=== PATIENT | female | born 1985 | race Caucasian/White ===

== ENCOUNTER 2018-06-23 11:42 | Outpatient (CLI) | payer SELFPAY ==
--- NOTE | 2018-06-23 11:59 | DI.RAD_ITS ---
SYMPTOM/DIAGNOSIS: PNEUMONIA, J18.9, COUGH, R05 PA AND LATERAL CHEST: No priors. The heart is normal in size. The lungs are clear. The mediastinal structures and pleura appear intact. CONCLUSION: Normal chest.
== END 2018-06-23 12:02 ==
PROVIDERS: PCP Physician Assistant Medical; Visit Provider Physician Assistant Medical
DX: J18.9 Pneumonia, unspecified organism (principal); R05 Cough
CPT/HCPCS: 71046

== ENCOUNTER 2018-06-23 12:03 | Outpatient (CLI) | payer SELFPAY ==
[2018-06-23 12:36] LABS: Abs Immature Grans 0.02 k/cumm (0.0-0.09); Absolute Basophil Count 0.02 k/cumm (0.0-0.2); Absolute Eosinophil Count 0.09 k/cumm (0.0-0.7); Absolute Lymphocyte Count 2.88 k/cumm (1.2-3.4); Absolute Monocyte Count 0.65 k/cumm (0.11-0.7); Basophils % 0.3; Eosinophils % 1.2; HCT 39.3 % (36.0-46.0); HGB 13.3 g/dL (12.0-15.5); Immature Grans % 0.3; Lymphocytes % 37.1; Mean Corp. HGB Concentration 33.8 g/dL (32.0-36.0); Mean Corpuscular Hemoglobin 27.9 pg (27.0-33.0); Mean Corpuscular Volume 82.6 fL (80-95); Mean Platelet Volume 10.6 fL (8.0-11.0); Monocytes % 8.4; Neutrophils % 52.7; Platelet Count 312 x1000/uL (130-400); RBC 4.76 m/cumm (4.00-5.20); RBC Distribution Width 13.6 % (11.7-14.6); White Blood Cell Count 7.76 k/cumm (4.4-10.8)
[2018-06-23 13:24] LABS: ALT 26 U/L (12-78); AST 14 U/L (15-37); Albumin 3.5 g/dL (3.4-5.0); Alkaline Phosphatase 70 U/L (46-116); Anion Gap 10.1 mmol/L (3-11); BUN 7 mg/dL (7-18); Bilirubin, Total 0.2 mg/dL (0.2-1.0); CO2 27.9 mmol/L (21.0-32.0); CREATININE 0.95 mg/dL (0.55-1.02); Calcium 8.7 mg/dL (8.5-10.1); Chloride 103 mmol/L (98-107); Glucose 99 mg/dL (70-100); Potassium 4.2 mmol/L (3.5-5.1); Sodium 141 mmol/L (136-145)
== END 2018-06-23 12:23 ==
PROVIDERS: PCP Physician Assistant Medical; Visit Provider Specialist/Technologist Athletic Trainer
DX: J18.9 Pneumonia, unspecified organism (principal)
CPT/HCPCS: 36415; 80053; 85025

== ENCOUNTER 2019-01-17 14:17 | Outpatient (REF) | payer OTHER, SELFPAY ==
[2019-01-17 21:13] LABS: Bacteria Rare HPF (Negative); C & S Indicated? C&S Done As Ordered; Casts Negative LPF (Negative); Crystals Negative HPF (Negative); Epithelial Cells Negative HPF (Negative); Mucus Negative (Negative); Other Cells Negative (Negative)
== END 2019-01-17 14:37 ==
LOC: NCHCN 14:17
PROVIDERS: PCP Physician Assistant Medical; Visit Provider Nurse Practitioner Family
DX: R30.0 Dysuria (principal)
CPT/HCPCS: 87077; 81015; 87086; 87186

== ENCOUNTER 2019-05-02 13:05 | Outpatient (REF) | payer OTHER, SELFPAY ==
[2019-05-02 20:42] LABS: ALT 27 U/L (12-78); AST 15 U/L (15-37); Albumin 3.7 g/dL (3.4-5.0); Alkaline Phosphatase 56 U/L (46-116); Anion Gap 10.9 mmol/L (3-11); BUN 7 mg/dL (7-18); Bilirubin, Total 0.3 mg/dL (0.2-1.0); CO2 26.1 mmol/L (21.0-32.0); CREATININE 0.83 mg/dL (0.55-1.02); Calculated LDL 187 mg/dL; Chloride 103 mmol/L (98-107); Cholesterol 286 mg/dL (50-200); Glucose 95 mg/dL (70-100); HDL Cholesterol 67 mg/dL (40-60); Potassium 4.9 mmol/L (3.5-5.1); Sodium 140 mmol/L (136-145); Total Protein 7.2 g/dL (6.4-8.2); Triglyceride 164 mg/dL (30-150)
[2019-05-02 21:20] LABS: Hemoglobin A1C 4.9 % (4.5-6.2)
== END 2019-05-02 13:25 ==
LOC: NCHCN 13:05
PROVIDERS: PCP Physician Assistant Medical; Visit Provider Physician Assistant Medical
DX: E28.2 Polycystic ovarian syndrome (principal)
CPT/HCPCS: 80053; 80061; 83721; 83036

== ENCOUNTER 2019-05-31 01:26 | Outpatient (CLI) | payer OTHER, SELFPAY ==
--- NOTE | 2019-05-31 09:00 | NS.NUTBLAN_ITS ---
DESCRIPTION: Harriet Arias presents for nutrition consult for hyperlipidemia although also reports polycystic ovary syndrome, anemia and constipation as chronic nutrition related problems. Total cholesterol: 286 LDL 187 HDL 69 A1c 4.9 Harriet reports high stress, high cholesterol, stress, lack of physical activity as risk factors for heart disease. She describes intense pain from ovaries; treated with Metformin. She states she has gained 8 pounds over the past month. She reports getting sick after eating peppers, apples, bananas, mangos, onions. She dislikes tomato juice, milk and beans/legumes. She drinks Monster drink every morning and water the rest of the day. She has a snack of chips/crackers 4 hours after getting up. Has salad if she is at work; she does not eat if she is home because she does not feel there is enough food for her; if she eats it is macaroni or rice. She cooks dinner for her family of fried chicken with mashed potato, cheese steak, shepherds pie, as examples. Eats out once a week [employer] or [facility] dinner. She has started increasing frequency of nuts. She reports a good night sleep 1-3 times a week stating she is a light sleeper and ferrets wake her up. She describes high stress with 3 teenagers and many animals. She is a tobacco user. ASSESSMENT/INTERVENTION: Multiple conditions to address in her food plans. Harriet reports eating minimally with food restriction but denies hunger. Harriet does not appear to present with typical PCOS symptoms of obesity and insulin resistance and thus typical intervention may not be needed, although we did review carbohydrate sources as a possible prevention for weight gain. Reviewed foods compatible with decreasing cholesterol; constipation prevention focused on fiber and saturated fats. Harriet does not express confidence she can change her food choices given her limited resources and lack of interest in eating. PLAN: 100% whole grain; beans as possible; 2+ cups fruit and 2+ cups vegetables daily Less saturated fat in cheeses; more polyunsaturated fat in oils
== END 2019-05-31 01:46 ==
PROVIDERS: PCP Physician Assistant Medical; Visit Provider Dietitian, Registered
DX: E78.5 Hyperlipidemia, unspecified (principal); Z71.3 Dietary counseling and surveillance
CPT/HCPCS: 97802

== ENCOUNTER 2021-12-29 08:22 | Outpatient (REF) | payer OTHER, SELFPAY ==
[2021-12-29 13:59] LABS: Abs Immature Grans 0.01 10^3/uL (0.0-0.06); Absolute Basophil Count 0.04 10^3/uL (0.0-0.2); Absolute Eosinophil Count 0.08 10^3/uL (0.0-0.7); Absolute Lymphocyte Count 2.39 10^3/uL (1.2-3.4); Absolute Monocyte Count 0.68 10^3/uL (0.1-0.8); Absolute Neutrophil Count 3.43 10^3/uL (1.2-6.7); Basophils % 0.6; Eosinophils % 1.2; HCT 36.6 % (36.0-46.0); HGB 11.3 g/dL (11.2-15.7); Immature Grans % 0.2; MCH 23.3 pg (27.0-33.0); MCHC 30.9 % (32.0-36.0); MCV 75.6 fL (80-95); MPV 11.1 fL (8.0-11.0); Monocytes % 10.3; Neutrophils % 51.7; Nucleated RBC 0 %; Platelet Count 363 10^3/uL (130-400); RBC 4.84 10^6/uL (3.93-5.22); RDW 15.1 % (11.7-14.6); RDW-SD 41.2 fL; WBC 6.63 10^3/uL (4.4-10.8)
[2021-12-29 14:24] LABS: Anion Gap 11.5 mmol/L (3-11); BUN 7 mg/dL (7-18); CO2 26.5 mmol/L (21.0-32.0); CREATININE 0.9 mg/dL (0.55-1.02); Calcium 9.3 mg/dL (8.5-10.1); Calculated LDL 116 mg/dL (<100); Chloride 104 mmol/L (98-107); Cholesterol 200 mg/dL (<200); Glucose 68 mg/dL (74-106); HDL Cholesterol 70 mg/dL (40-60); Potassium 3.8 mmol/L (3.5-5.1); Sodium 142 mmol/L (136-145); TSH (W/Ref FT4) 1.87 uIU/mL (0.36-3.74); Triglyceride 70 mg/dL (<150)
== END 2021-12-29 08:23 | disposition home or self-care (01) ==
LOC: NCHCN 08:22
PROVIDERS: PCP Physician Assistant Medical; Visit Provider Physician Assistant Medical
DX: E28.2 Polycystic ovarian syndrome (principal); D64.9 Anemia, unspecified; E78.5 Hyperlipidemia, unspecified
CPT/HCPCS: 80048; 80061; 84443; 85025

== ENCOUNTER 2022-01-04 12:50 | Outpatient (REF) | payer OTHER, SELFPAY ==
[2022-01-05 15:25] LABS: COVID-19 RT-PCR UVMMC Result Positive (Negative)
== END 2022-01-04 12:51 | disposition home or self-care (01) ==
LOC: LBN 12:50
PROVIDERS: PCP Physician Assistant Medical; Visit Provider Nurse Practitioner Family
DX: Z20.822 Contact with and (suspected) exposure to COVID-19 (principal)
CPT/HCPCS: U0003

== ENCOUNTER 2022-11-08 17:05 | Outpatient (REF) | payer OTHER, SELFPAY ==
[2022-11-08 18:53] LABS: HCT 32.9 % (36.0-46.0); HGB 10.2 g/dL (11.2-15.7); MCH 22.4 pg (27.0-33.0); MCV 72 fL (80-95); MPV 10.4 fL (8.0-11.0); Platelet Count 393 10^3/uL (130-400); RBC 4.56 10^6/uL (3.93-5.22); RDW-SD 41.6 fL; WBC 9.42 10^3/uL (4.4-10.8)
[2022-11-08 19:10] LABS: Anion Gap 8.8 mmol/L (3-11); BUN 7 mg/dL (7-18); CO2 26.2 mmol/L (21.0-32.0); CREATININE 0.9 mg/dL (0.55-1.02); Calcium 8.9 mg/dL (8.5-10.1); Chloride 106 mmol/L (98-107); Estimated GFR 84.44 (mL/min/1.73m2); Glucose 90 mg/dL (74-106); Sodium 141 mmol/L (136-145); TSH (W/Ref FT4) 1.45 uIU/mL (0.36-3.74)
[2022-11-08 19:17] LABS: Hemoglobin A1C 5.3 % (<5.7)
== END 2022-11-08 17:06 | disposition home or self-care (01) ==
LOC: NCHCN 17:05
PROVIDERS: PCP Physician Assistant Medical; Visit Provider Physician Assistant Medical
DX: R00.2 Palpitations (principal); Z13.1 Encounter for screening for diabetes mellitus
CPT/HCPCS: 80048; 85027; 83036; 84443

== ENCOUNTER 2022-11-15 10:28 | Outpatient (CLI) | payer OTHER, SELFPAY | END 2022-11-15 10:29 | disposition home or self-care (01) | PROVIDERS: PCP Physician Assistant Medical; Visit Provider Physician Assistant Medical | DX: R00.2 Palpitations (principal) | CPT/HCPCS: 93246 ==

== ENCOUNTER 2022-11-15 15:09 | Outpatient (REF) | payer OTHER, SELFPAY ==
[2022-11-15 16:30] LABS: Iron 12 ug/dL (50-170); Total Iron Binding Capacity 485 ug/dL (250-450); Transferrin Sat 2 % (15-50)
[2022-11-15 16:57] LABS: Ferritin 5 ng/mL (8-252); Vitamin B12 397 pg/mL (193-986)
== END 2022-11-15 15:10 | disposition home or self-care (01) ==
LOC: NCHCN 15:09
PROVIDERS: PCP Physician Assistant Medical; Visit Provider Physician Assistant Medical
DX: D64.9 Anemia, unspecified (principal); R79.89 Other specified abnormal findings of blood chemistry
CPT/HCPCS: 82607; 82728; 83540; 83550

== ENCOUNTER 2022-12-06 08:07 | Outpatient (CLI) | payer OTHER, SELFPAY ==
--- NOTE | 2022-12-06 12:25 | W.CARDEVENT ---
Date of service: 12/06/22 Time of Service: 12:25 Cardiac Event Recorder Referring Provider:: Abraham Salinas Indications:: Palpitations Cardiac Event Note: This is a 14-day cardiac event monitor ordered for palpitations Rhythm throughout was sinus with an average heart rate of 88. Minimum was 51, maximum 179 There were rare atrial and ventricular ectopic beats A total of 2 self-limited atrial runs occurred. The longest of these was 7 beats in duration There was no atrial fibrillation, no high-grade AV block, no pauses greater than 3 seconds Patient symptoms were reported which had no correlation with any dysrhythmia
== END 2022-12-06 08:08 | disposition home or self-care (01) ==
LOC: CARDOPNVT 08:07
PROVIDERS: PCP Physician Assistant Medical; Visit Provider Internal Medicine Cardiovascular Disease
DX: R00.2 Palpitations (principal)

== ENCOUNTER 2022-12-21 15:05 | Outpatient (REF) | payer OTHER, SELFPAY ==
[2022-12-21 17:04] LABS: HCT 43.9 % (36.0-46.0); HGB 14.3 g/dL (11.2-15.7); MCH 25.9 pg (27.0-33.0); MCHC 32.6 % (32.0-36.0); MCV 79 fL (80-95); MPV 11.2 fL (8.0-11.0); Platelet Count 322 10^3/uL (130-400); RBC 5.53 10^6/uL (3.93-5.22); RDW 22.9 % (11.7-14.6); RDW-SD 62.3 fL; WBC 7.69 10^3/uL (4.4-10.8)
[2022-12-21 17:52] LABS: Ferritin 29 ng/mL (8-252)
[2022-12-21 18:00] LABS: Iron 183 ug/dL (50-170); Total Iron Binding Capacity 426 ug/dL (250-450); Transferrin Sat 43 % (15-50)
== END 2022-12-21 15:06 | disposition home or self-care (01) ==
LOC: NCHCN 15:05
PROVIDERS: PCP Physician Assistant Medical; Visit Provider Physician Assistant Medical
DX: D64.9 Anemia, unspecified (principal)
CPT/HCPCS: 85027; 82728; 83540; 83550

== ENCOUNTER 2023-01-24 09:07 | Outpatient (CLI) | payer OTHER, SELFPAY | END 2023-01-24 09:08 | disposition home or self-care (01) | LOC: CARDOPNVT 09:07 | PROVIDERS: PCP Physician Assistant Medical; Visit Provider Physician Assistant Medical | DX: R00.2 Palpitations (principal) | CPT/HCPCS: 93270 ==

== ENCOUNTER 2023-03-07 10:32 | Outpatient (CLI) | payer OTHER, SELFPAY ==
--- NOTE | 2023-03-07 10:34 | W.CARDEVENT ---
Date of service: 03/07/23 Time of Service: 10:34 Cardiac Event Recorder Referring Provider:: Abraham Salinas Indications:: Palpitations Cardiac Event Note: This is a cardiac event monitor ordered for palpitations. The patient was monitored for 29 days Rhythm throughout was sinus. Average heart rate was 90. Minimum heart rate was 58. Maximum heart rate was 162 There were rare ventricular ectopic beats. There was no SVT, no atrial fibrillation, no high-grade AV block, no pauses greater than 3 seconds Patient's symptoms were reported. The majority of these corresponded to sinus rhythm, rarely to isolated PVCs
== END 2023-03-07 10:33 | disposition home or self-care (01) ==
LOC: CARDOPNVT 10:32
PROVIDERS: PCP Physician Assistant Medical; Visit Provider Internal Medicine Cardiovascular Disease
DX: R00.2 Palpitations (principal)

== ENCOUNTER 2024-03-19 16:12 | Outpatient (REF) | payer OTHER, SELFPAY ==
[2024-03-19 16:35] LABS: Abs Immature Grans 0.03 10^3/uL (0.0-0.06); Absolute Basophil Count 0.04 10^3/uL (0.0-0.2); Absolute Lymphocyte Count 1.83 10^3/uL (1.2-3.4); Absolute Monocyte Count 0.94 10^3/uL (0.1-0.8); Absolute Neutrophil Count 4.76 10^3/uL (1.2-6.7); Basophils % 0.5 %; Eosinophils % 1.3 %; HCT 40.1 % (36.0-46.0); HGB 13.1 g/dL (11.2-15.7); Immature Grans % 0.4 %; Lymphocytes % 23.8 %; MCH 27.5 pg (27.0-33.0); MCHC 32.7 % (32.0-36.0); MCV 84 fL (80-95); MPV 10.9 fL (8.0-11.0); Monocytes % 12.2 %; Neutrophils % 61.8 %; Platelet Count 331 10^3/uL (130-400); RBC 4.77 10^6/uL (3.93-5.22); RDW-SD 39.7 fL
[2024-03-19 17:11] LABS: ALT 23 U/L (14-59); AST 18 U/L (15-37); Alkaline Phosphatase 48 U/L (46-116); Anion Gap 9.7 mmol/L (3-11); BUN 6 mg/dL (7-18); Bilirubin, Total 0.41 mg/dL (0.2-1.0); CO2 26.3 mmol/L (21.0-32.0); Calcium 9.5 mg/dL (8.5-10.1); Chloride 105 mmol/L (98-107); Estimated GFR 73.49 (mL/min/1.73m2); Glucose 85 mg/dL (74-106); Magnesium 1.6 mg/dL (1.8-2.4); Potassium 3.7 mmol/L (3.5-5.1); Sodium 141 mmol/L (136-145); Total Protein 7.5 g/dL (6.4-8.2)
[2024-03-19 17:37] LABS: Hemoglobin A1C 5.4 % (<5.7)
== END 2024-03-19 16:13 | disposition home or self-care (01) ==
LOC: NCHCN 16:12
PROVIDERS: PCP Physician Assistant Medical; Visit Provider Physician Assistant Medical
DX: K21.9 Gastro-esophageal reflux disease without esophagitis (principal); E28.2 Polycystic ovarian syndrome; E83.42 Hypomagnesemia; Z13.1 Encounter for screening for diabetes mellitus
CPT/HCPCS: 80053; 83036; 83735; 85025

== ENCOUNTER 2024-08-28 08:41 | Outpatient (REF) | payer OTHER, SELFPAY ==
[2024-08-28 14:59] LABS: HCT 35.8 % (36.0-46.0); HGB 11.4 g/dL (11.2-15.7); MCH 25.2 pg (27.0-33.0); MCHC 31.8 % (32.0-36.0); MCV 79 fL (80-95); MPV 10.6 fL (8.0-11.0); Platelet Count 396 10^3/uL (130-400); RBC 4.53 10^6/uL (3.93-5.22); RDW 14.1 % (11.7-14.6); RDW-SD 40.2 fL
[2024-08-28 15:55] LABS: Calculated LDL 120 mg/dL (<100); Cholesterol 213 mg/dL (<200); Ferritin 6 ng/mL (8-252); HDL Cholesterol 69 mg/dL (40-60); Magnesium 1.7 mg/dL (1.8-2.4); Triglyceride 122 mg/dL (<150); Vitamin D 25 Total 14.7 ng/mL (30-100)
== END 2024-08-28 08:42 | disposition home or self-care (01) ==
LOC: NCHCN 08:41
PROVIDERS: PCP Physician Assistant Medical; Visit Provider Physician Assistant Medical
DX: E83.42 Hypomagnesemia (principal); E28.2 Polycystic ovarian syndrome; D64.9 Anemia, unspecified; F41.8 Other specified anxiety disorders
CPT/HCPCS: 80061; 82306; 85027; 82728; 83735

== ENCOUNTER 2024-10-09 06:10 | Day surgery (SDC) | payer OTHER, SELFPAY ==
--- NOTE | 2024-10-08 17:44 | W.ANESPRE ---
General Info Date of Service Date Performed: 10/09/24 Height: 5 ft 2.25 in Weight: 74.843 kg Body Mass Index (BMI): 29.9 Surgical Procedure: Operation Date: 10/09/24 07:40 Proposed Procedure Side Surgeon p Wrist ECTR Right Miguel Angel Hamlin MD Meds Allergies and Home Medications Allergies Allergy/AdvReac Type Severity Reaction Status Date / Time carbamazepine (From Tegretol) Allergy Unknown Unknown Unverified 10/09/24 06:27 codeine Allergy Other (See Unverified 10/09/24 06:27 Comment) Penicillins Allergy Other (See Unverified 10/09/24 06:27 Comment) hydrocodone (From Vicodin) AdvReac Severe Nausea Unverified 10/09/24 06:27 Home Medication ?Medication ?Instructions ?Recorded metformin 500 mg tablet 500 mg PO DAILY 02/06/15 norethindrone 1 mg-ethinyl 1 tab PO DAILY 02/06/15 estradiol 35 mcg tablet (Nortrel) spironolactone 100 mg tablet 100 mg PO DAILY 02/06/15 bupropion HCl 100 mg tablet 100 mg PO DAILY 04/12/24 (Wellbutrin) buspirone 5 mg tablet 5 mg PO BID 04/12/24 esomeprazole magnesium 40 mg 40 mg PO DAILY 04/12/24 capsule,delayed release gabapentin 300 mg capsule 300 mg PO QHS 04/12/24 acetaminophen 500 mg tablet 500 mg PO Q6H PRN pain #60 tabs 10/09/24 Current Visit Medications: Current Medications Generic Name Dose Route Start Last Admin Trade Name Freq PRN Reason Stop Dose Admin Acetaminophen 1,000 mg 10/09/24 06:00 Acetaminophen 500 Mg Tab PO 10/09/24 23:59 PREOP ASHWINI Celecoxib 400 mg 10/09/24 06:00 Celecoxib 200 Mg Cap PO 10/09/24 23:59 PREOP ASHWINI Ringer's Solution 1,000 mls @ 0 mls/hr 10/09/24 06:00 IV 10/09/24 23:59 INFUSION ASHWINI Cefazolin Sodium/Dextrose 2 gm in 50 mls @ 100 mls/hr 10/09/24 06:00 Ancef Duplex IVPB 10/09/24 23:59 PREOP ASHWINI IV Miscellaneous Supplies 1 each 10/09/24 06:00 Iv Access IV 10/09/24 23:59 DIRECTED ASHWINI Sodium Chloride 0 ml 10/09/24 06:00 Normal Saline Flush 10 Ml Syr IV 10/09/24 23:59 PRN PRN Sodium Chloride 0 ml 10/09/24 06:00 Normal Saline 10 Ml Vial IJ 10/09/24 23:59 DIRECTED PRN Sterile Water 0 ml 10/09/24 06:00 Water,Injection,Sterile 10 Ml Vial IJ 10/09/24 23:59 DIRECTED PRN PFSH Active Problems Active Problems: Problem Status Onset Code Right lateral epicondylitis Acute M77.11 Right carpal tunnel syndrome Acute G56.01 Medical History Medical History Polycystic ovarian syndrome Dysuria Palpitations Headache Microscopic hematuria Functional disorder of intestine GERD (gastroesophageal reflux disease) Allergic rhinitis Anxiety disorder Major psychotic depression, single episode Hyperlipidemia Anemia, unspecified Polycystic ovaries Tobacco dependence Bowel wall thickening Surgical History Surgical History Hx of section Hx of laparoscopy EGD, MAC, Dr Dawna Hines, repeat PRN (05/03/16) Colonoscopy - MAC (05/03/16) Dr Dawna Hines Tobacco Smoking/Tobacco Use Status: Current every day Smokeless tobacco user: other Substance Use Substance use: Never Vital Signs and Lab Results Vital Signs Most Recent Vital Signs in EMR: Temp Pulse Resp BP Pulse Ox 36.4 C L 87 18 109/74 98 10/09/24 06:34 10/09/24 06:34 10/09/24 06:34 10/09/24 06:34 10/09/24 06:34 Lab Results Blood Type / Crossmatch: No Data to Display Complete Blood Count: No Data to Display Complete Metabolic Panel: No Data to Display Liver Function Panel: No Data to Display Coagulation Panel: No Data to Display Cardiac Panel: No Data to Display Arterial Blood Gas: No Data to Display Venous Blood Gas: No Data to Display Pancreas Panel: No Data to Display Thyroid Panel: No Data to Display Infectious Disease: No Data to Display Blood Cultures: No Data to Display Toxicology Panel: No Data to Display Panel: No Data to Display Anesthesia Assessment and Plan Anesthesia History Personal History: No History of Anesthesia Complications Family History: No Family History of Anesthesia Complications Exercise Tolerance Exercise Tolerance: Metabolic Equivalents>4 Cardiac & Pulmonary Exam Cardiac Exam: Normal S1/S2 Heart Sounds Pulmonary Exam: Clear Bilateral Breath Sounds Implantable Cardiac Device Does patient have a Pacemaker or an ICD?: No Airway Exam Known Difficult Airway: No Mallampati Class: 4 Mouth Opening: Narrow (< 3cm) (TMJ) Thyromental Distance: Greater than 3 cm Neck Range of Motion: Full ROM Neck Circumference: Normal Teeth Condition: Normal Dentition ASA Classification ASA Score: ASA 2 Emergency Case?: No NPO Status NPO Status: NPO Clears >2 hours, Solids >8 hours Status Status: Negative HCG Anesthesia Plan Resuscitation Status: Full Code Anesthesia Technique: General Anesthesia Airway Planned: Natural Airway Monitors Used: Standard Monitors Preoperative Comments:: 38 yo female for ectr. Sig PMHx: palpitations (has a propranolol PRN rx, does not use very often), GERD(Nexium, well controlled), anxiety/depression, smoker Previous Anes: - tonsils, adam 2, grade 1, easy mask. - EGD/colo, prop, natural airway, no issues.
[2024-10-09 06:34] VITALS: BP 109/74; PULSE 87; RESP 18; TEMP 36.4; O2SAT 98
[2024-10-09] MEDS: Acetaminophen 500 MG TAB 1000 MG PO (06:38)
[2024-10-09] MEDS: Celecoxib 200 MG CAP 400 MG PO (06:38)
[2024-10-09] MEDS: Lactated Ringers 1,000 ML 80 ML IV (07:12)
--- NOTE | 2024-10-09 07:13 | W.PM.DSUDISC ---
Date of service: 10/09/24 Discharge Plan Disposition Patient Disposition: Home Condition: Good Discharge Details Reason For Visit: Right carpal tunnel syndrome Attending Provider: Miguel Angel Hamlin Primary Care Provider: Abraham Salinas Home Meds and New Rx's Prescriptions: New acetaminophen 500 mg tablet 500 mg PO Q6H PRN (Reason: pain) Qty: 60 2RF Continued bupropion HCl [Wellbutrin] 100 mg tablet 100 mg PO DAILY buspirone 5 mg tablet 5 mg PO BID esomeprazole magnesium 40 mg capsule,delayed release(DR/EC) 40 mg PO DAILY gabapentin 300 mg capsule 300 mg PO QHS metformin 500 MG tablet 500 mg PO DAILY spironolactone 100 MG tablet 100 mg PO DAILY Nortrel () 1 EACH tablet 1 tab PO DAILY Discharge Instructions Stand Alone Forms: [facility]bacar Lebron Tunnel Release Referrals: Miguel Angel Hamlin MD [ [facility] STAFF PHYSICIAN] - Remove Dressings/Wound Care:: 48 hours Shower/Bathe:: 48 hours Diet:: As Tolerated Discharge Orders Discharge Orders: Discharge Order (Routine); Ordered 10/09/24 Ordered By: Nydia Puente
[2024-10-09 07:18] VITALS: BMI 29.9
--- NOTE | 2024-10-09 07:19 | W.PREOPHP ---
Assessment and Plan Assessment and plan (1) Right carpal tunnel syndrome: Status: Acute Assessment and plan: Harriet is a 38-year-old female who has carpal tunnel syndrome of the right side in addition to potential other pathology such as lateral epicondylitis. She is here today for carpal tunnel release on the right side. She denies any new symptoms or new medical concerns. Once again, I reviewed the technical details of carpal tunnel release and that I perform an endoscopic release, but would make a larger, open, incision if necessary for visualization. I discussed the risks of the procedure to include, but not limited to, bleeding, infection, palmar pain, stiffness, damage to nerves, damage to vessels, damage to tendons, weakness, recurrence, and incomplete release. Given these risks, Harriet desires to proceed. History of Present Illness History of Present Illness Chief Complaint: Right Carpal Tunnel Syndrome Narrative: Harriet is a 38-year-old female has carpal tunnel syndrome about the right side. She has failed nonoperative options and is here today for carpal tunnel release. Please see the previous office note for complete detailed history. She has had some ongoing symptoms of lateral condyle lightest and other pains about the elbow, potentially derived from work, however, the primary symptomatology seem to be related to the carpal tunnel. She denies any ongoing medical issues such as chest pain or shortness of breath. Review of Systems All systems reviewed & are unremarkable except as noted in HPI and below PFSH All Active Problems Right lateral epicondylitis (Acute) Right carpal tunnel syndrome (Acute) Medical History Polycystic ovarian syndrome Dysuria Palpitations Headache Microscopic hematuria Functional disorder of intestine GERD (gastroesophageal reflux disease) Allergic rhinitis Anxiety disorder Major psychotic depression, single episode Hyperlipidemia Anemia, unspecified Polycystic ovaries Tobacco dependence Bowel wall thickening Surgical History Hx of section Hx of laparoscopy EGD, MAC, Dr Dawna Hines, repeat PRN (05/03/16) Colonoscopy - MAC (05/03/16) Dr Dawna Hines Social History Smoking/Tobacco Use Status: Current every day Tobacco Type: e-cigarettes Smokeless tobacco user: other Smoking risk assessment performed?: Yes Alcohol Intake: current Alcohol Intake frequency: a few times a week Alcohol type: beer Drug use: Never Substance use type: does not use Housing: house Do you feel safe at home: Yes Meds Allergies and Home Medications Allergies Allergy/AdvReac Type Severity Reaction Status Date / Time carbamazepine (From Tegretol) Allergy Unknown Unknown Unverified 10/09/24 06:27 codeine Allergy Other (See Unverified 10/09/24 06:27 Comment) Penicillins Allergy Other (See Unverified 10/09/24 06:27 Comment) hydrocodone (From Vicodin) AdvReac Severe Nausea Unverified 10/09/24 06:27 Home Medications ?Medication ?Instructions ?Recorded ?Confirmed ?Type metformin 500 mg tablet 500 mg PO DAILY 02/06/15 10/09/24 History norethindrone 1 mg-ethinyl 1 tab PO DAILY 02/06/15 10/09/24 History estradiol 35 mcg tablet (Nortrel) spironolactone 100 mg tablet 100 mg PO DAILY 02/06/15 10/09/24 History bupropion HCl 100 mg tablet 100 mg PO DAILY 04/12/24 10/09/24 History (Wellbutrin) buspirone 5 mg tablet 5 mg PO BID 04/12/24 10/09/24 History esomeprazole magnesium 40 mg 40 mg PO DAILY 04/12/24 10/09/24 History capsule,delayed release gabapentin 300 mg capsule 300 mg PO QHS 04/12/24 10/09/24 History acetaminophen 500 mg tablet 500 mg PO Q6H PRN pain #60 tabs 10/09/24 Rx Exam Const General: cooperative, healthy appearing, comfortable and no acute distress Resp Effort & Inspection: normal respiratory effort Auscultation: clear to auscultation bilaterally Cardio Rate: regular rate Rhythm: regular rhythm Results Last Vital Signs Temp 36.4 C L 10/09/24 06:34 Pulse 87 10/09/24 06:34 Resp 18 10/09/24 06:34 BP 109/74 10/09/24 06:34 Pulse Ox 98 10/09/24 06:34
[2024-10-09] MEDS: ceFAZolin 2 GM/50 ML BAG IVPB (07:22)
[2024-10-09] MEDS: Lidocaine 1% Pres-Free W/EPI 1/200,000 10 ML VIAL (07:37)
[2024-10-09 07:41] VITALS: BP 127/74; PULSE 74; RESP 18; TEMP 36; O2SAT 97
--- NOTE | 2024-10-09 07:49 | W.PM.OP ---
Operative Note Operative Note PRE-OP DIAGNOSIS: Right Carpal Tunnel Syndrome POST-OP DIAGNOSIS: same PROCEDURE: Right Endoscopic Carpal Tunnel Release SURGEON: Miguel Angel Hamlin ANESTHESIA TYPE: General:No Airway Refer to Anesthesia Record ESTIMATED BLOOD LOSS: 0 PATHOLOGY: none sent TOURNIQUET TIME: 4 COMPLICATIONS: None Patient was transported to: same day Patient's condition: stable Indications: I have seen Harriet in clinic for symptoms of carpal tunnel syndrome. The numbness, tingling, and pain limited function. Clinical exam findings confirmed the diagnosis of carpal tunnel syndrome. Nonoperative measures such as bracing, time, activity modifications had been tried but disability and pain persisted. I discussed carpal tunnel release with the patient. I reviewed the risks of the procedure to include, but not limited to, bleeding, infection, pain, stiffness, incomplete release, damage to nerves or vessels, persistent numbness, recurrence. Despite these risks, the patient elected to proceed. Findings: There was tightened carpal tunnel. This was dilated and released successfully with the endoscopic with increased space within the tunnel. The antebrachial fascia was released proximally freeing the median nerve at the wrist. Procedure Description: Harriet was greeted in the preoperative holding area where the correct side was identified and marked. The consent was reviewed with the patient and signed. The history and physical was updated. All questions were answered. She was taken back to the operating room. The patient was placed into the supine position on the operating room table with the right arm on an arm board. A nonsterile tourniquet was placed high onto the arm. All bony prominences were well padded. Prophylactic antibiotics in the form of Cefazolin were administered. The right arm was then prepped with Chloraprep and draped in a standard fashion with stockinette and extremity drape. A timeout to confirm correct identity, side and site, procedure, allergies, anesthesia, and medical concerns was performed. The surgical site was marked in the volar wrist creases in line with the radial border of the fourth ray. This area was anesthetized with approximately 6cc of 1% Lidocaine. The limb was then exsanguinated with an Esmarch. The skin was incised with a 15 blade, approximately 1cm. The skin only was cut and the deeper tissue was dissected bluntly with a tenotomy scissor, avoiding passing nerve and venous structures. The fascia was penetrated and opened bluntly. A two-prong skin hook was placed under this proximal fascial edge. A series of hamate finders were used to identify and dilate the carpal tunnel. Synovial elevator was used to free synovial attachments to the underside of the transverse carpal ligament. My thumb was kept in the palm to palma the distal extent of the carpal tunnel and correctly position the hand. The [employer]aire endoscope was inserted without difficulty and without resistance. Excellent visualization showed horizontally running fibers of the transverse carpal ligament (TCL). The distal extent of the TCL was visualized and the end of the scope palpated with the thumb. The blade was elevated and withdrawn from distal to proximal. The TCL was split into two flaps. The endoscope was reinserted to confirm complete release and any remnant ligament was incised. The scope was withdrawn and the proximal aspect of the carpal tunnel was grossly inspected and appeared release with the median nerve visible. The antebrachial fascia at the level of the wrist was then freed from the overlying skin and then the underlying median nerve with blunt dissection. This was transected longitudinally for about 3cm proximal to the wrist incision. The wound was then irrigated with easy flow of irrigant distally and proximally. The incision was closed with a single 4-0 Nylon suture. The wound was dressed with Xeroform, Gauze, Kerlix and Mak. The tourniquet was deflated with the initial dressing and held with some pressure. Blood flow returned easily to all digits with capillary refill less than 2 seconds. The patient tolerated the procedure well and was returned to the Same Day Surgery area in a stable condition suffering no known complication. Date of Procedure: 10/09/24
[2024-10-09 08:09] VITALS: BP 140/79; PULSE 70; RESP 18; TEMP 36.3; O2SAT 98
--- NOTE | 2024-10-09 08:28 | W.ANESPOSTOP ---
Postoperative Evaluation Date, Time and Location Date Performed: 10/09/24 Time Performed: 08:28 Patient Location: Day Surgery Unit Vital Signs Most Recent Imported Vital Signs: Most Recent Vital Signs Temp Pulse Resp BP Pulse Ox 36.3 C L 70 18 140/79 98 10/09/24 08:09 10/09/24 08:09 10/09/24 08:09 10/09/24 08:09 10/09/24 08:09 Pain Score Most Recent Pain Score: Most Recent Pain Score Pain Level 0 10/09/24 08:09 Assessment Mental Status: Awake (Alert & Oriented to Patient Baseline) Airway and Respiratory Function: Patent airway with normal (patient baseline) respiratory exam Cardiovascular Function: Hemodynamically Stable Hydration Status: Adequately Hydrated Nausea & Vomiting: No Nausea or Vomiting Pain: Pt. Denies Any Pain Peripheral Nerve Block: Patient did not receive a nerve block
== END 2024-10-09 08:42 | disposition home or self-care (01) ==
PROVIDERS: PCP Physician Assistant Medical; Visit Provider Student in an Organized Health Care Education/Training Program
PROC: 01N54ZZ Release Median Nerve, Percutaneous Endoscopic Approach (ICD-10-PCS; CPT 29848; principal; 2024-10-09 07:30)
DX: G56.01 Carpal tunnel syndrome, right upper limb (principal)
CPT/HCPCS: 29848; 81025; J0690; J1885; J2004; J2250; J2704; J3010

== ENCOUNTER 2024-12-10 16:09 | Outpatient (REF) | payer OTHER, SELFPAY ==
[2024-12-10 19:24] LABS: HCT 34.4 % (36.0-46.0); MCH 24.3 pg (27.0-33.0); MCV 76 fL (80-95); MPV 10.5 fL (8.0-11.0); Platelet Count 378 10^3/uL (130-400); RBC 4.52 10^6/uL (3.93-5.22); RDW 15.2 % (11.7-14.6); RDW-SD 41.8 fL; WBC 7.04 10^3/uL (4.4-10.8)
[2024-12-10 19:36] LABS: Iron 41 ug/dL (50-170); Total Iron Binding Capacity 439 ug/dL (250-450); Transferrin Sat 9 % (15-50)
[2024-12-10 20:02] LABS: Ferritin 5 ng/mL (8-252); Magnesium 1.6 mg/dL (1.8-2.4); Vitamin D 25 Total 29 ng/mL (30-100)
== END 2024-12-10 16:10 | disposition home or self-care (01) ==
LOC: NCHCN 16:09
PROVIDERS: PCP Physician Assistant Medical; Visit Provider Physician Assistant Medical
DX: D64.9 Anemia, unspecified (principal); E55.9 Vitamin D deficiency, unspecified; E83.42 Hypomagnesemia
CPT/HCPCS: 82306; 85027; 82728; 83540; 83550; 83735

== ENCOUNTER 2025-05-26 18:34 | Emergency (ER) | payer OTHER, SELFPAY ==
[2025-05-26 18:41] VITALS: BP 141/102; PULSE 88; RESP 14; TEMP 36.9; O2SAT 100
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
[2025-05-26] MEDS: Ibuprofen 600 MG TAB PO (20:29)
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
[2025-05-26 21:10] VITALS: RESP 18
== END 2025-05-26 21:10 | disposition home or self-care (01) ==
PROVIDERS: Emergency Provider Emergency Medicine; PCP Physician Assistant Medical
DX: S16.1XXA Strain of muscle, fascia and tendon at neck level, initial encounter (principal); Y04.8XXA Assault by other bodily force, initial encounter
CPT/HCPCS: 99284; 70450; 70486; 72125; 99283